=== PATIENT | male | born 1955 | race Caucasian/White ===

== ENCOUNTER 2016-10-11 11:10 | Emergency (ER) | payer OTHER ==
[~2016-10-11] VITALS: Ht 172.7 cm; Wt 91.4 kg
[~2016-10-11 11:10] MED LIST: ATEN50TA8 PO; DICL1GEL12 TOP; GABA-112 PO; LRS20 PO; PRD20 PO; PRED20TA2 PO
[2016-10-11 11:13] VITALS: TEMP 36.8; Ht 172.7 cm; Wt 91.4 kg
[2016-10-11] MEDS ORDERED: MoRPHine SULFATE 10 MG/ML CARP/VIAL IM STA (11:36)
[2016-10-11] MEDS ORDERED: ASPCH81X PO (12:15)
[2016-10-11] MEDS ORDERED: OXYC-57 PO (12:28)
--- NOTE | 2016-10-11 12:40 | EMERGENCY ROOM VISIT NOTE ---
History Report prepared by Eladio: Marya Ramirez Under the Supervision of: Dr. Cruz Morris D.O. 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 The pain is worse with movement and he states that it feels like the "muscle is tightening up." The patient states he slipped on the steps this morning and hit his back on the steps then rolled down the steps. He denies LOC and hitting his head. He is also experiencing some lower right-sided chest pain. His found him face down on the floor. He has a history of back problems but has never had surgery on his back. However, the patient states that he had neck surgery in the past. The patient states that he takes one baby aspirin daily. 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 A total of 10 systems reviewed and were otherwise negative. Past Medical & Surgical Medical Problems: (1) Bulging disc (2) Trapezius muscle strain Family History Cancer Diabetes mellitus Heart disease Hypertension Social History Smoking Status: Former Smoker Marital Status: Housing Status: lives with family Current/Historical Medications Scheduled Aspirin (Aspirin Chewable), 81 MG PO DAILY Atenolol (Tenormin), 50 MG PO DAILY Scheduled PRN Oxycodone/Acetaminophen 5MG/325MG (Percocet 5MG/325MG), 1 TAB PO Q6H PRN for Pain Allergies Coded Allergies: Aspirin (Verified Allergy, Unknown, Swelling of nose and stomach problems. , 09/12/14) Reported by PT. Physical Exam Vital Signs Date Time Temp Pulse Resp B/P Pulse Ox O2 Delivery O2 Flow Rate FiO2 10/11/16 13:10 56 16 126/80 99 Room Air 10/11/16 11:48 102 10/11/16 11:13 36.8 63 18 158/91 96 Room Air Physical Exam CONSTITUTIONAL/VITAL SIGNS: Reviewed / noted above. GENERAL: Non-toxic in appearance. INTEGUMENTARY: Warm, dry, and [place]. HEAD: Normocephalic. EYES: without scleral icterus or trauma. ENT/OROPHARYNX: clear and moist. LYMPHADENOPATHY/NECK: Is supple without lymphadenopathy or meningismus. CHEST: Tender to palpation of right anterior 12th rib. RESPIRATORY: Lungs clear and equal. CARDIOVASCULAR: Regular rate and rhythm. GI/ABDOMEN: Soft and nontender. No organomegaly or pulsatile mass. No rebound or guarding. Normal bowel sounds. EXTREMITIES: Warm and well perfused. BACK: No CVA tenderness. Tender to the posterior right 11th and 12th rib area. No obvious visible injury. NEUROLOGICAL: Intact without focal deficits. PSYCHIATRIC: normal affect. MUSCULOSKELETAL: Normally developed with good muscle tone. Medical Decision & Procedures ER Provider Diagnostic Interpretation: X ray results and stated below per my interpretation and radiology interpretation. AP CHEST WITH RIGHT-SIDED RIBS ARE CLINICAL HISTORY: Fall. Right chest wall pain. FINDINGS: An AP supine chest radiograph and 4 additional views may right-sided rib series are obtained. No prior studies are available for comparison at the time of dictation. The AP view is degraded by apical lordotic positioning. The cardiomediastinal silhouette is unremarkable. The lungs and pleural spaces are clear. No pneumothorax is seen. There is no radiographic evidence of right-sided rib fracture on the rib series. The remainder of the bony thorax is grossly intact. Fusion hardware is noted in lower cervical spine. IMPRESSION: 1. The lungs are clear. 2. There is no radiographic evidence of right-sided rib fracture as clinically queried. Electronically signed by: Jose Rutledge M.D. 10/11/2016 1:01 PM Medications Administered Medications (Trade) Dose Ordered Sig/Gautam Route Start Time Stop Time Status Last Admin Dose Admin Morphine Sulfate (MoRPHine SULFATE INJ) 6 mg NOW STAT IM 10/11/16 11:36 10/11/16 11:37 DC 10/11/16 12:02 6 MG ED Course 1131: Previous medical records were reviewed. The patient was evaluated in room C7. A complete history and physical examination was performed. 1136: Ordered Morphine Sulfate 6 mg IM 1333: On reevaluation, the patient is doing well. I discussed the results and findings with the patient. He verbalized agreement of the treatment plan. He was discharged home. Medical Decision Differential includes close head injury, intracranial bleed, facial trauma, cervical spine trauma, chest and thoracic trauma, abdominal and intra-abdominal trauma, spine neurologic trauma, extremity trauma. This is a 61-year-old male who presents to the ED with a chief complaint of right sided low thorax pain related to a fall. The patient slipped and hit his back lower right ribs on the edge of the step. He presented for pain in this area. The patient's exam reveals tenderness in the lower right thorax in the area of the 11th and 12th rib as well as the anterior 12th rib. There is no obvious abnormalities noted on exam. No significant swelling or ecchymosis or abrasions. Chest x-ray did not show pneumothorax. X-ray of the ribs The patient was given morphine IM. He was also given IM Toradol and IM Dilaudid. He was discharged on Percocet. Impression Primary Impression: Back contusion Additional Impression: rib fracture clinically Scribe Attestation The scribe's documentation has been prepared under my direction and personally reviewed by me in its entirety. I confirm that the note above accurately reflects all work, treatment, procedures, and medical decision making performed by me. Departure Information Dispostion Home / Self-Care Prescriptions Oxycodone/Acetaminophen 5MG/325MG (PERCOCET 5MG/325MG) Tab 1 TAB PO Q6H Y for Pain, #30 TAB Prov: Cruz Morris D.O. 10/11/16 Forms HOME CARE DOCUMENTATION FORM, IMPORTANT VISIT INFORMATION Patient Instructions A Signature Page, My [facility] [employer] Additional Instructions Percocet as prescribed. No driving within 6 hours of use. Do not take additional Tylenol while taking Percocet. Motrin can used in addition to Percocet for pain. Follow-up with your doctor if symptoms persist.
--- NOTE | 2016-10-11 13:03 | DIAGNOSTIC IMAGING REPORT ---
AP CHEST WITH RIGHT-SIDED RIBS ARE CLINICAL HISTORY: Fall. Right chest wall pain. FINDINGS: An AP supine chest radiograph and 4 additional views may right-sided rib series are obtained. No prior studies are available for comparison at the time of dictation. The AP view is degraded by apical lordotic positioning. The cardiomediastinal silhouette is unremarkable. The lungs and pleural spaces are clear. No pneumothorax is seen. There is no radiographic evidence of right-sided rib fracture on the rib series. The remainder of the bony thorax is grossly intact. Fusion hardware is noted in lower cervical spine. IMPRESSION: 1. The lungs are clear. 2. There is no radiographic evidence of right-sided rib fracture as clinically queried. Electronically signed by: Jose Rutledge M.D. 10/11/2016 1:01 PM
[2016-10-11] MEDS ORDERED: HYDROmorphone INJ 2 MG/ML SYR/VIAL IM STA (13:41)
[2016-10-11] MEDS ORDERED: KETOROLAC TROMETHAMINE 60 MG/2 ML VIAL IM STA (13:41)
[2016-10-11 14:20] VITALS: BP 134/77; PULSE 56; O2SAT 99
== END 2016-10-11 14:22 | disposition home or self-care (01) ==
LOC: EDBD 11:10 → C.EDC 11:11
DX: S20.221A Contusion of right back wall of thorax, initial encounter (principal); W10.9XXA Fall (on) (from) unspecified stairs and steps, initial encounter; Z87.891 Personal history of nicotine dependence; Z79.82 Long term (current) use of aspirin

== ENCOUNTER 2023-04-15 07:27 | Observation (INO) ==
--- NOTE | 2023-04-06 11:19 | Anesthesiology Consultation ---
Date of Service April 06, 2023 Assessment & Plan (1) Encounter for pre-operative examination: Chart Review Chart Review: Pending: Refer to Additional Notes / Consult section (pending signed PCP note from 04/06/23) and Patient NOT seen in Pre Admission Testing *Pt taking atenolol for hx of HTN; rx by PCP. Per chart review, pulse typically low 60s. Per PCP, pt asymptomatic. COVID screening: Per PAT nursing assessment on 04/06/23, No known COVID-19 positive contacts or current COVID-19 related symptoms. Travel screen negative. Patient vaccinated for Covid. At surgeon discretion if preop Covid testing being done. Consults Requested pending signed PCP note from 04/06/23 visit (Dr. Messina) History Surgery Operation Date: 04/15/23 08:15 Proposed Procedures p TURP (Transurethral Resection of the Prostate) - Jaya Pimentel, DO Height/Weight Height: 5 ft 8 in Weight: 86.636 kg Allergies Allergy/AdvReac Type Severity Reaction Status Date / Time aspirin Allergy Mild Swelling Verified 04/06/23 10:21 of nose and stomach problems. Medications Home Medications Medication Instructions Recorded Confirmed Last Taken multivitamin (Daily Multi-Vitamin 1 tab PO DAILY 09/03/20 04/06/23 Unknown tablet) tamsulosin 0.4 mg capsule (Flomax) 0.4 mg PO .every evening urinary 03/04/23 04/06/23 Unknown symptoms #90 caps aloe vera 1 cap PO QAM 04/06/23 04/06/23 Unknown ascorbic acid (vitamin C) 500 mg 500 mg PO QAM 04/06/23 04/06/23 Unknown tablet (Vitamin C) atenolol 50 mg tablet 50 mg PO QAM 04/06/23 04/06/23 Unknown diphenhydramine HCl 25 mg capsule 50 mg PO HS 04/06/23 04/06/23 Unknown (Benadryl) famotidine 20 mg tablet 20 mg PO HS 90 days #90 tabs 04/06/23 04/06/23 Unknown magnesium 1 tab PO HS 04/06/23 04/06/23 Unknown omega-3 fatty acids 1,000 mg PO QAM 04/06/23 04/06/23 Unknown omeprazole 20 mg capsule,delayed 20 mg PO QAM 04/06/23 04/06/23 Unknown release turmeric root extract 150 1 tab PO BID 04/06/23 04/06/23 Unknown mg-ermias root extract 25 mg chewable tablet zinc 50 mg capsule 50 mg PO QAM 04/06/23 04/06/23 Unknown Past Medical History Medical History (Updated 04/06/23 @ 11:39 by Genia Santiago PA-C) Allergic rhinitis Arthritis BPH (benign prostatic hyperplasia) 'significant bladder outlet obstruction' per surgeon H&P; renal US 03/03/23 WNL Cervical disc disease GERD (gastroesophageal reflux disease) HTN (hypertension) (09/13/14) Past Family History Family History Father Heart disease Myocardial infarction, Onset Age: 56 Sister Oral cancer Hypertension Mother Colorectal cancer Grandfather (Paternal) , 56 Coronary heart disease Myocardial infarction, Onset Age: 56 Other No family history of adverse response to anesthesia Denies family history of Ovarian cancer Prostate cancer Breast cancer Past Surgical History Surgical History Cervical vertebral fusion (2014) good rom History of colonoscopy History of cystoscopy History of esophagogastroduodenoscopy (EGD) History of oral surgery reconstruction on gums History of tooth extraction Social History Smoking Status: Former smoker tobacco type: cigarettes Do You Dip or Chew Tobacco: No Smoking End Date: 35+ years ago Hx Alcohol Use: No Hx Substance Use: No substance use type: does not use Lab Results Anesthesia Preop Results Results Anesthesia Widget: WBC 6.21 K/ul (4.8-10.8) 03/30/23 Hgb 15.6 g/dl (14.0-18.0) 03/30/23 Hct 45.0 % (42.0-52.0) 03/30/23 Plt 195 K/uL (130-400) 03/30/23 Na 139 mmol/L (136-145) 03/30/23 K 3.9 mmol/L (3.5-5.1) 03/30/23 Cl 104 mmol/L (98-107) 03/30/23 CO2 30 mmol/L (21-32) 03/30/23 BUN 16 mg/dl (6-23) 03/30/23 Creat 0.98 mg/dl (0.6-1.4) 03/30/23 Glucose Level 94 mg/dl (70-99(Fasting)) 03/30/23 Testing Laboratory Results 03/23/23 urine culture: no growth Electrocardiogram Date: 03/23/23 Findings: + SB @ (56bpm) No significant change from 08/29/19 EKG (NSR at 60bpm) Chest X-Ray Date: 03/23/23 Findings: + NAD Other Testing Renal US 03/03/23 unremarkable
[~2023-04-15 07:27] MED LIST changes: -ATEN50TA8 PO; -DICL1GEL12 TOP; -GABA-112 PO; +LR 15ML/HR IV SCH; -LRS20 PO; -PRD20 PO; -PRED20TA2 PO; +ceFAZolin 2000MG 2,000 MG/15 ML SYR IV SCH
--- NOTE | 2023-04-15 08:03 | History & Physical Bridge Note ---
Date of Service April 15, 2023 History & Physical Bridge Note I have examined the patient, reviewed the History & Physical and in the interval since the performance of the History & Physical I have noted the following changes of clinical significance: no changes noted
[2023-04-15] MEDS ORDERED: ONDANSETRON INJ 2 MG/ML 2 ML VIAL IV PRN ×2 (08:42→11:57)
[2023-04-15] MEDS ORDERED: ATROPINE SULFATE 0.1 MG/ML 10ML SYR IV PRN (08:42)
[2023-04-15] MEDS ORDERED: fentaNYL citrate PF 100 MCG/2 ML VIAL IV PRN (08:42)
[2023-04-15] MEDS ORDERED: ONDANSETRON INJ 2 MG/ML 2 ML VIAL ONE (10:11)
[2023-04-15] MEDS ORDERED: PROPOFOL IV EMULSION 10 MG/ML 20 ML VIAL IV ONE (10:11)
[2023-04-15] MEDS ORDERED: LIDOCAINE 2% 2 ML VIAL/AMP(20MG/ML) INFIL ONE (10:11)
[2023-04-15] MEDS ORDERED: DEXAMETHASONE SOD INJ 4 MG/ML VIAL ONE (10:11)
--- NOTE | 2023-04-15 10:38 | Operative Report ---
PG Post Operative Report Pre & Post Diagnosis Operation Date: 04/15/23 09:15 Pre-Op Diagnosis: Benign Prostatic Hyperplasia with Urinary Obstruct Post-Op Diagnosis: Benign Prostatic Hyperplasia with Urinary Obstruct I identified the patient and participated in the time-out.: Yes Procedure Operation Date: 04/15/23 09:15 Actual Procedures p TURP (Transurethral Resection of the Prostate) with urethral and meatal dilation. (Not Applicable) - Jaya Pimentel, Surgeon Jaya Pimentel, II, DO Manager Progressive Care None Estimated Blood Loss 5 Findings Consistent with Post-Op Diagnosis Large Prostate with obstruction. 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 Dilated. Specimens Prostate adenoma. Drains 22Fr [address] Catheter Anesthesia Type General Complications none Disposition Disposition: Recovery Room Indications Patient with obstruction due to prostate enlargement. Risks and benefits discussed at length. Description of Procedure Patient was consented and brought back to the operating room. Patient was placed under anesthesia in the supine position and moved to the dorsal lithotomy position. Patient was prepped and draped in the regular sterile fashion. A time out was completed. A 30degree Cystoscope was placed into the urethra after dilating the meatus. A mild mid pendulous urethra stricture was also dilated. The scope was advanced to the bladder and the entire bladder was examined. The UO's were identified as well as the bladder neck, trigone, dome, and the other important landmarks. The prostatic urethra and large lobes/adenoma was assessed and the veru and bladder neck identified and area/size was assessed. The resection scope was placed and the fine bipolar loop was selected. Starting at the 5 and 7 o'clock positions, a channel was created from bladder neck to the veru. The right and left lateral lobes were then resected from the 1 and 11 o'clock position down to the channel. The tissue was resected down to capsule fibers. The Specimen was removed and sent for analysis. The resection bed and any bleeding areas were fulgurated/cauterized and the entire area inspected. All bleeding was controlled. The bladder was inspected a final time. The bladder was emptied and irrigated. All specimen and debris was removed. The scope was removed with the bladder partially full. A catheter was placed and balloon elevated. This was easily irrigated. The patient was cleaned, aroused from anesthesia, and transferred to the pacu in stable condition having tolerated the procedure well with no complications. I was present and participated in all aspects of the procedure. The patient will be monitored in the PACU until transferred. Plan to observe overnight. Plan for catheter for approx 7-10 days and removal in office. I attest to the content of the Intraoperative Record and any orders documented therein. Any exceptions are noted below.
[2023-04-15] MEDS ORDERED: MoRPHine SULFATE 2 MG/ML CARP IV PRN (11:57)
[2023-04-15] MEDS ORDERED: oxyBUTYnin chloride 5 MG TAB PO PRN (11:57)
[2023-04-15] MEDS ORDERED: oxyCODONE/ACETAMINOPHEN 5mg/325mg TAB PO PRN (11:57)
[2023-04-15] MEDS ORDERED: NON-FORMULARY MEDICATION (Omeprazole 20 mg capsule,delayed release(DR/EC)) PO SCH (11:57)
[2023-04-15] MEDS: ATENOLOL 50 MG TABLET PO SCH (12:01)
[2023-04-15] MEDS: SODIUM CHLORIDE 0.9% 1000ML 1,000 ML IV SCH (12:02)
--- NOTE | 2023-04-15 12:54 | Anesthesiology Progress Note ---
Date of Service April 15, 2023 Anesthesia Post Procedure Vital Signs Vital Signs: Temp Pulse Pulse Pulse Resp BP Pulse Ox 04/15/23 12:30 36.4 C L 61 16 144/81 H 95 04/15/23 11:30 36 C L 57 L 13 131/78 94 04/15/23 11:15 58 L 14 137/84 95 04/15/23 11:05 61 18 138/83 95 04/15/23 10:55 61 14 130/76 98 04/15/23 10:45 36.1 C L 67 19 139/70 95 04/15/23 08:06 36.5 C 55 L 18 140/81 97 O2 Del Method O2 Flow Rate 04/15/23 12:30 Room Air 04/15/23 11:30 Room Air 04/15/23 11:15 Room Air 04/15/23 11:05 Room Air 04/15/23 10:55 Nasal Cannula 4 04/15/23 10:45 Nasal Cannula 4 04/15/23 08:06 Room Air Transfer of Care Handoff Completed per policy Notes Mental Status: alert / awake / arousable Patient Amnestic to Procedure: Yes Nausea / Vomiting: adequately controlled Pain: adequately controlled Airway Patency, RR, SpO2: stable & adequate BP & HR: stable & adequate Hydration State: stable & adequate Anesthetic Complications: no major complications apparent
[2023-04-15 13:01] LABS: Basophils # (auto) 0.05 K/uL (0-0.2); Basophils % (auto) 0.5 %; Eosinophils # (auto) 0.04 K/uL (0-0.50); Eosinophils % (auto) 0.4 %; Hematocrit (blood only) 44.9 % (42.0-52.0); Hemoglobin 15.7 g/dl (14.0-18.0); Immature Granulocytes # (auto) 0.05 K/uL (0.01-0.20); Immature Granulocytes % (auto) 0.5 %; Lymphocytes # (auto) 0.84 K/uL (1.2-3.4); Lymphocytes % (auto) 9.2 %; Mean Corpuscular Hemoglobin 32.8 pg (25.0-34.0); Mean Corpuscular Volume 93.9 fL (80.0-100.0); Mean Platelet Volume 10.6 fL (9.4-12.4); Monocytes # (auto) 0.14 K/uL (0.11-0.59); Monocytes % (auto) 1.5 %; Neutrophils # (auto) 8.04 K/uL (1.40-6.50); Neutrophils % (auto) 87.9 %; Platelet Count 176 K/uL (130-400); RDW Coefficient of Variation 11.8 % (11.5-14.5); RDW Standard Deviation 40.7 fL (36.4-46.3); Red Blood Count 4.78 M/uL (4.70-6.10); White Blood Count 9.16 K/ul (4.8-10.8)
[2023-04-15 13:19] LABS: Albumin Globulin Ratio 1.3 (0.9-2); Albumin Level 4.1 gm/dl (3.4-5.0); BUN Creatinine Ratio 13.1 (10-20); Bilirubin,Total 0.6 mg/dl (0.2-1.0); Calcium 8.9 mg/dl (8.6-10.3); Creatinine Clr Calc Pharmacy 74.5 ml/min; Est GFR (African American) 89.7 ml/min; Est GFR (Non-African American) 77.4 ml/min; Globulin 3.1 gm/dl (2.5-4.0); Potassium 4.3 mmol/L (3.5-5.1); Total Protein 7.2 gm/dl (6.0-8.3)
[2023-04-15] MEDS: ceFAZolin 2000MG 2,000 MG/15 ML SYR IV SCH (18:10)
[2023-04-15] MEDS ORDERED: diphenhydrAMINE Capsule 25 MG CAP PO SCH (21:00)
[2023-04-15] MEDS ORDERED: TAMSULOSIN HCL 0.4 MG CAP PO SCH (21:00)
[2023-04-15] MEDS ORDERED: FAMOTIDINE 20 MG TAB PO SCH (21:00)
[2023-04-15] MEDS: PHENAZOPYRIDINE HCL 200 MG TAB PO PRN (22:41)
[2023-04-16] MEDS: SODIUM CHLORIDE 0.9% 1000ML 1,000 ML IV SCH (01:16)
[2023-04-16] MEDS: ceFAZolin 2000MG 2,000 MG/15 ML SYR IV SCH ×2 (01:22→08:51)
--- NOTE | 2023-04-16 08:27 | Urology Progress Note ---
Date of Service April 16, 2023 Assessment & Plan (1) BPH w urinary obs/LUTS: (2) Incomplete emptying of bladder: Plan: - Pt POD#1 s/p TURP with Dr. Pimentel - Doing well, progressing as expected - Afebrile with stable vitals - Tolerating PO diet - 3 way Vale catheter intact, patent and draining bright yellow/light orange urine with CBI on slow - CBI clamped during exam - will reassess later this AM - Maintain Vale catheter - Anticipate home with Vale catheter later today presuming urine appropriate and he continues to progress as expected - Expected clinical course reviewed, all questions answered - Will arrange outpatient follow-up with our service for voiding trial Admission and Anticipated Discharge Date Admission Date: April 15, 2023 Subjective Patient seen and examined at bedside this morning. He is awake, alert and resting in bed. No acute issues overnight. Notes difficulty sleeping. Reports some discomfort at urethral meatus from catheter. Vale patent and draining bright yellow/light orange urine with CBI on slow. CBI clamped during exam. Denies nausea, vomiting, fever or chills. Review of Systems Constitutional: as per Subjective / HPI Gastrointestinal: as per Subjective / HPI Genitourinary: + as per Subjective / HPI Physical Exam Constitutional: well developed and well nourished; no acute distress Respiratory: no respiratory distress and no labored breathing Gastrointestinal (Abdomen): Inspection/Auscultation: abdomen normal to inspection; abdomen not distended Neurologic: moves all extremities and awake Psychiatric: Orientation: alert and oriented x 3 Genitourinary: Vale patent and draining light orange urine with CBI on slow. CBI clamped during exam. Results & Data Vital Signs (Past 12 Hours) Vital Signs Temp Pulse Resp BP Pulse Ox O2 Del Method 04/16/23 03:56 36.6 C 64 16 130/75 95 Room Air 04/15/23 23:55 36.5 C 63 16 136/71 95 Room Air 04/15/23 20:19 36.8 C 96 H 16 139/82 96 Room Air PG Care Time/CCT Total # of Minutes Spent Total Time Spent with Patient: Total time spent is greater than 50% in coordination of care (as documented) at patient's floor/unit and/or counseling patient: Coding Level of Care Code None Diagnoses BPH w urinary obs/LUTS N40.1; N13.8 Incomplete emptying of bladder R33.9
--- NOTE | 2023-04-16 08:35 | Discharge Summary ---
Date of Service April 16, 2023 Admission HPI Per Admitting Provider Patient with significant bladder outlet obstruction here for TURP as previously discussed. Risks and benefits reviewed. Admission Exam Per Admitting Provider General: Alert in no acute distress. HEENT: Inspection normal Psychologic: Normal affect. Respiratory: Nonlabored. No use of accessory muscles. Skin: [place] and Dry. No rashes or visible lesions. Principal Diagnosis BPH with LUTS Discharge Exam Constitutional well developed and well nourished; no acute distress Respiratory no respiratory distress and no labored breathing Gastrointestinal (Abdomen) Inspection/Auscultation: abdomen normal to inspection; abdomen not distended Neurologic moves all extremities and awake Psychiatric Orientation: alert and oriented x 3 Genitourinary Vale patent and draining bright yellow/light orange urine with CBI on slow. CBI clamped. Discharge Data Allergies Allergy/AdvReac Type Severity Reaction Status Date / Time aspirin Allergy Mild Swelling Verified 04/15/23 07:52 of nose and stomach problems. Procedures Performed Operation Date: 04/15/23 09:15 Actual Procedures p TURP (Transurethral Resection of the Prostate)(Not Applicable) - Jaya Pimentel, DO Hospital Course (1) BPH w urinary obs/LUTS: (2) Incomplete emptying of bladder: - Pt POD#1 s/p TURP with Dr. Pimentel - Doing well, progressing as expected - Afebrile with stable vitals - Tolerating PO diet - 3 way Vale catheter intact, patent and draining bright yellow/light orange urine with CBI on slow - CBI clamped during exam - will reassess later this AM - Maintain Vale catheter - Anticipate home with Vale catheter later today presuming urine appropriate and he continues to progress as expected - Expected clinical course reviewed, all questions answered - Will arrange outpatient follow-up with our service for voiding trial Patient reassessed and urine remains clear with CBI clamped. Okay to discontinue CBI set up now and clamp irrigation port, maintain Vale. Patient ready for discharge to home with Vale catheter now. Discharge orders placed and follow-up appointments in place. Total Time Total Time Spent Total Time Spent (In Minutes): 29 Discharge Plan Discharge Items Patient Disposition: Home - Self-Care Reason For Visit: Benign Prostatic Hyperplasia with Urinary Obstruct Discharge Diagnosis: Benign Prostatic Hyperplasia with Urinary obstruction Activity: Per Instructions section Lifting: No more than 25 pounds Bathing Comment: Okay to shower after discharge, no tub bath or soaking Sexual Activity: Wait until after follow-up appointment Exercise/Sports: Wait until after follow-up appointment Driving/Machine Use: No driving while taking prescription pain medication Non-emergency contact: Urologist Call non-emergency contact if: your pain is not controlled, you have a fever and your temperature is above 101 Follow-up/Referrals: Imani Messina DO [Primary Care Provider] - Jaya Pimentel DO [Physician] - 05/04/23 4:00 pm [facility],Nurse [FAKE FOR SCHEDULES] - Diet: Regular Addtl Attending Provider Instructions: Please take all medications as prescribed and keep all follow-ups as scheduled. Please call our office at [phone] with any questions, concerns or need to reschedule appointments for any reason. We are happy to assist you. Tips for your recovery at home: Dont be alarmed by brownish or reddish blood or clots in your urine. This is a result of the procedure. This may occur off and on for weeks to months after the procedure but should continue to improve. Drink plenty of fluids during the day (enough to keep your urine very light colored). This will help keep a healthy flow of urine. Do not lift >25 lbs until your followup Avoid constipation. Please use a stool softener (Colace) for the first two wee ks after your procedure Be sure to finish the antibiotics as prescribed. If you go home with a catheter, please wash tubing where it enters your body twice daily with mild soap (Dove or Dial). Once your catheter is removed, expect some blood in your urine and some burning when you urinate. You should have an appointment to have this removed, if you do not please call our office to arrange. Pending Studies at Discharge: Yes Studies:: pathology Stand-Alone Forms: My [employer], Smoking Cessation Medications and DC Order Prescriptions: New cephalexin 500 mg capsule 500 mg PO BID 5 Days Qty: 10 0RF docusate sodium [Colace] 100 mg capsule 100 mg PO BID Qty: 60 0RF Rx Instructions: Take twice daily for 2 weeks, then as needed for constipation. phenazopyridine [Pyridium] 200 mg tablet 200 mg PO Q8H PRN (Reason: pain) Qty: 10 0RF Continued tamsulosin [Flomax] 0.4 mg capsule 0.4 mg PO .every evening Qty: 90 3RF famotidine 20 mg tablet 20 mg PO HS 90 Days Qty: 90 3RF multivitamin [Daily Multi-Vitamin] Tablet 1 tab PO DAILY [place] 3 Fish Oil Capsule 1,000 mg PO QAM magnesium Tablet 1 tab PO HS Patient Comments: 50mg turmeric root-ermias root ext 150-25 mg Tablet,Chewable 1 tab PO BID omeprazole 20 mg capsule,delayed release(DR/EC) 20 mg PO QAM atenolol 50 mg tablet 50 mg PO QAM ascorbic acid (vitamin C) [Vitamin C] 500 mg Tablet 500 mg PO QAM aloe vera Capsule 1 cap PO QAM zinc 50 mg Capsule 50 mg PO QAM diphenhydramine HCl [Benadryl] 25 mg Capsule 50 mg PO HS Discharge Orders: Discharge Order (Routine); Ordered 04/16/23 Ordered By: Liana Garza Admission Data Admit Date/Time: 04/15/23 08:08 Attending Provider: Jaya Pimentel Admit Provider: Jaya Pimentel Primary Care Provider: Imani Messina Coding Level of Care Code 60241 IN/OBS DISCH 30 MIN/LESS Diagnoses BPH w urinary obs/LUTS N40.1; N13.8 Incomplete emptying of bladder R33.9 Time Spent (min) 29
[2023-04-16] MEDS: ATENOLOL 50 MG TABLET PO SCH (08:47)
[2023-04-16] MEDS: PHENAZOPYRIDINE HCL 200 MG TAB PO PRN (08:52)
[2023-04-16] MEDS ORDERED: PANTOprazole 40 MG TAB PO SCH (09:00)
== END 2023-04-16 11:03 | disposition home or self-care (01) ==
LOC: ASU 07:27 → 3W 07:27
DX: Z79.82 Long term (current) use of aspirin; Z88.6 Allergy status to analgesic agent; R33.8 Other retention of urine; Z79.899 Other long term (current) drug therapy; Z87.891 Personal history of nicotine dependence; I10 Essential (primary) hypertension; N30.80 Other cystitis without hematuria; N40.1 Benign prostatic hyperplasia with lower urinary tract symptoms; N13.8 Other obstructive and reflux uropathy